=== PATIENT | female | born 1950 | race Caucasian/White ===

== ENCOUNTER → 2016-09-06 | Outpatient (CLI) | payer OTHER ==
[~2016-09-06] MED LIST: ATV/1 PO; INDA1TAB3 PO; LOSA1TAB PO; MULT-190 PO; S-AD1TAB6; SIMV40TA4 PO
[2016-09-06 12:07] LABS: BASO % 0.5 %; BASO ABS # 0.04 K/uL (0-0.2); COMPLETE YES; EOS % 2.1 %; HEMATOCRIT 40.6 % (37-47); IG% 0.3 %; LYMPH % 35.5 %; LYMPH ABS # 2.73 K/uL (1.2-3.4); MEAN CELL VOLUME 96.7 fL (80-100); MEAN CORPUSCULAR HEMOGLOBIN 32.4 pg (25-34); MEAN CORPUSCULAR HGB CONC 33.5 g/dl (32-36); MEAN PLATELET VOLUME 10.9 fL (7.4-10.4); MONO % 7.8 %; NEUT % 53.8 %; PLATELET COUNT 285 K/uL (130-400); WHITE BLOOD COUNT 7.68 K/uL (4.8-10.8)
[2016-09-06 12:35] LABS: ESTIMATED AVERAGE GLUCOSE 114 mg/dl; HA1C FLAG Normal (Normal)
[2016-09-06 13:47] LABS: ALT/SGPT 27 U/L (12-78); AST/SGOT 17 U/L (15-37); BLOOD UREA NITROGEN 21 mg/dl (7-18); BUN/CREATININE RATIO 34.5 (10-20); CALCIUM 9.3 mg/dl (8.5-10.1); CARBON DIOXIDE 30 mmol/L (21-32); CHLORIDE 102 mmol/L (98-107); CHOLESTEROL 159 mg/dl (0-200); GLUCOSE 95 mg/dl (70-99); POTASSIUM 3.9 mmol/L (3.5-5.1); SODIUM 139 mmol/L (136-145)
[2016-09-06 13:57] LABS: CHOLESTEROL/HDL RATIO 3.5; HDL CHOLESTEROL 46 mg/dl; LDL CHOLESTEROL CALCULATED 97 mg/dl; THYROID STIMULATING HORMONE 0.999 uIu/ml (0.300-4.500); TRIGLYCERIDES 79 mg/dl (0-150); VERY LOW DENSITY LIPOPROT CALC 16 mg/dl
--- NOTE | 2016-09-10 11:56 | CODING QUERY MEDICAL NECESSITY ---
SUPPORTING DIAGNOSIS NEEDED Dr. Lynn, A supporting diagnosis is required for the test/procedure performed on this patient in order for us to be reimbursed by the patient's insurance. Please provide a supporting diagnosis for the following test/procedure listed below next to the test name along with your signature. *If there is no additional diagnosis for this patient that would support the following test/procedure please document that below next to the test/procedure. Test(s)/Procedure(s) that require a supporting diagnosis: * [id number] GLYCATED HEMOGLOBIN DIAGNOSIS: DATE OF SERVICE: 09/06/16 Provider Signature: Date: Thank you Rajesh Rangel [facility] Information Management Once completed, please kindly fax back to [phone] For questions please call [phone]
== END | disposition home or self-care (01) ==
LOC: C.LAB1850 10:32
PROVIDERS: ATTEND Internal Medicine
DX: M54.2 Cervicalgia (principal); R73.9 Hyperglycemia, unspecified

== ENCOUNTER → 2016-09-19 | Outpatient (CLI) | payer OTHER ==
--- NOTE | 2016-09-19 13:35 | MAMMOGRAPHY REPORT ---
ULTRASOUND OF BOTH BREASTS: 09/19/2016 CLINICAL HISTORY: Screening ultrasound for dense breasts. The patient reports no current complaints . COMPARISON: Comparison is made to exams dated: 01/15/2016 mammogram, 09/19/2015 ultrasound, 03/17/2015 ultrasound, 01/13/2015 mammogram, 09/13/2014 ultrasound, and 01/12/2014 mammogram - [facility]. TECHNIQUE: Real-time ultrasound of both breasts was performed. FINDINGS: Real-time, high-resolution ultrasound was performed of bilateral breast including all 4 quadrants an d subareolar regions. Again noted is a round circumscribed hypoechoic mass in the left breast at 12 :00, 1 cm from the nipple, measuring 5 x 5 x 5 mm. This is stable compared to prior exams dating ba ck to the August 2014 exam, and is considered benign given long-term stability. In the left breast a t 2:00, 5 cm from the nipple, again noted is an oval circumscribed hypoechoic mass which measures 5 x 2 x 5 mm, also stable dating back to the August 2014 exam and considered benign given long-term sta bility. In the left breast at 4:00, 6 cm from the nipple, again noted is an oval hypoechoic circums cribed mass which measures 5 x 6 x 3 mm, also unchanged. In the left breast at 10:00, 6 cm from the nipple, there is an oval isoechoic 5 x 5 mm mass, which m ay represent a benign-appearing solid mass such as a fibroadenoma versus a normal fat lobule. This was not clearly evident on prior ultrasound exams. Adjacent to this in the left breast at 10:00 carmen roximately 7 cm from the nipple, there is an oval hypoechoic circumscribed mass which measures 6 x 3 mm, and is newly visualized. These masses appear similar to the other stable masses seen within th e left breast and are probably benign. Given that they are newly visualized, recommend short interv al follow-up ultrasound in 6 months. Ultrasound of the right breast demonstrates no suspicious masses or other suspicious sonographic abn ormalities. An oval anechoic benign simple cyst is seen within the right breast at 10:00, measuring 3 mm. IMPRESSION: ACR-BI-RADS CATEGORY 3: PROBABLY BENIGN - FOLLOW-UP RECOMMENDED 1. 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 2. Two adjacent circumscribed hypoechoic/isoechoic masses in the left breast at 10:00 are also prob ably benign and may represent fibroadenomas. Given that they are newly visualized on ultrasound, re commend a short interval follow-up ultrasound in 6 months to confirm stability. Note that bilateral screening mammograms are due December 2016. The patient was verbally notified of e results. Sangeeta Savage M.D. ah/:09/19/2016 12:03:26 Candle Wrapper: Sangeeta Savage MD, [facility] letter sent: Follow Up Recommended 3 BI-RADS Code: ACR-BI-RADS Category 3: Probably Benign
== END | disposition home or self-care (01) ==
LOC: C.MAMM 10:43
PROVIDERS: ATTEND Obstetrics & Gynecology
DX: Z12.31 Encounter for screening mammogram for malignant neoplasm of breast (principal); N63 Unspecified lump in breast

== ENCOUNTER → 2017-01-15 | Outpatient (CLI) | payer OTHER ==
--- NOTE | 2017-01-15 12:44 | MAMMOGRAPHY REPORT ---
BILATERAL DIGITAL SCREENING MAMMOGRAM WITH CAD: 01/15/2017 CLINICAL HISTORY: Routine screening. Patient has no complaints. TECHNIQUE: Bilateral CC and MLO views were obtained. Current study was also evaluated with a Compute r Aided Detection (CAD) system. COMPARISON: Comparison is made to exams dated: 01/15/2016 mammogram, 01/13/2015 mammogram, 01/12/2014 m ammogram, 01/11/2013 mammogram, 12/23/2011 mammogram, and 12/21/2010 mammogram - [facility]. BREAST COMPOSITION: The tissue of both breasts is heterogeneously dense, which may obscure small mas ses. FINDINGS: There are clusters of microcalcifications in both breasts. Although some of the clustered calcifications have been stable, others are possibly increased compared to prior exams and therefore bilateral spot magnification views are recommended. There are 2 nodular asymmetries in the lateral, middle one third of the right breast, best seen on the CC view, for which additional spot compressio n tomosynthesis views and possibly ultrasound are recommended. No other suspicious mass, focal area of architectural distortion or developing asymmetry is seen bila terally. IMPRESSION: ACR BI-RADS CATEGORY 0: INCOMPLETE EVALUATION: NEED ADDITIONAL IMAGING EVALUATION The bilateral clusters of microcalcifications and nodular asymmetries in the lateral right breast nee d additional imaging evaluation. The patient will be called to schedule an appointment. Approximately 10% of breast cancers are not detected with mammography. A negative mammographic report should not delay biopsy if a clinically suggestive mass is present. Leigh Quiles M.D. ay/:01/15/2017 12:29:55 Telephone Lineman: Ashleigh Nuno, [facility] letter sent: Addl Imaging 0 BI-RADS Code: ACR BI-RADS Category 0: Incomplete Evaluation: Need Additional Imaging Evaluation
== END | disposition home or self-care (01) ==
LOC: C.MAMM 12:03
PROVIDERS: ATTEND Obstetrics & Gynecology
DX: Z12.31 Encounter for screening mammogram for malignant neoplasm of breast (principal); R92.0 Mammographic microcalcification found on diagnostic imaging of breast; N64.89 Other specified disorders of breast

== ENCOUNTER → 2017-01-20 | Outpatient (CLI) | payer OTHER ==
--- NOTE | 2017-01-21 13:09 | MAMMOGRAPHY REPORT ---
BILATERAL DIGITAL DIAGNOSTIC MAMMOGRAM TOMOSYNTHESIS AND TARGETED RIGHT ULTRASOUND: 01/20/2017 CLINICAL HISTORY: Callback from screening mammography for bilateral microcalcifications and nodular a symmetry in the lateral right breast. Patient is also scheduled to have a follow-up left breast ultr asound to reassess benign-appearing masses in the 10:00 breast as described on the previous bilateral complete ultrasound report. TECHNIQUE: Spot magnification CC and ML views of each breast, spot compression 2-D and tomosynthesis right cc view were obtained. Then, after placement of a skin BB marker Spot compression CC and MLO t omosynthesis views of the right breast were obtained. COMPARISON: Comparison is made to exams dated: 01/15/2017 mammogram, 09/19/2016 ultrasound, 01/15/2016 mammogram, 01/13/2015 mammogram, 01/12/2014 mammogram, and 01/11/2013 mammogram - [facility]. BREAST COMPOSITION: The tissue of both breasts is heterogeneously dense, which may obscure small mas ses. FINDINGS: There are clusters of coarse heterogeneous microcalcifications bilaterally. There are carmen roximately 4 clusters in the left breast and one cluster in the right upper outer quadrant. All of t he clusters appears similar in morphology. When comparing back to prior available mammograms, many o f the clustered calcifications are evident dating back to 2009, suggesting benignity. However, some have increased, particularly in the lateral left breast. Although the microcalcifications most likel y represent benign calcifications such as degenerating fibroadenomas, definitive characterization of the largest, 6.3 mm cluster in the posterior, retroareolar left breast is recommended. The spot compression tomosynthesis view of the lateral right breast demonstrates a persistent 7.8 mm nodular asymmetry versus lobulated reniform shaped mass. No definite area of architectural distortio n is identified. A second possible mass posterior to the first measures 4.8 mm. Further evaluation with ultrasound was performed. Targeted ultrasound was performed throughout the lateral right breast. In the 9:00 axis, 5 cm from t he nipple, there is a reniform peripherally hypoechoic centrally echogenic mass measuring 2.5 x 1.8 x 3.0 mm. Another similar-appearing reniform mass with central echogenicity is seen in the adjacent 9 :00 right breast measuring 3.6 mm. Central blood flow is documented, suggesting these masses represe nt intramammary lymph nodes. An ill-defined hypoechoic area of shadowing was seen in the 8:00 right breast, 3 cm from the nipple, that may simply represent normal tissue with stromal fibrosis. However, a skin BB was placed overlyi ng the hypoechoic shadowing area seen on ultrasound and repeat spot compression tomosynthesis right C C and MLO views were performed. These additional tomosynthesis images demonstrate no evidence of arc hitectural distortion near the BB, suggesting the sonographic finding is benign. However, this can b e reassessed at the patient's follow-up appointment in the left breast dated 03/24/2017. IMPRESSION: ACR BI-RADS CATEGORY 4B: INTERMEDIATE SUSPICION FOR MALIGNANCY, TARGETED ULTRASOUND ACR BI-RADS CATEGORY 4B: INTERMEDIATE SUSPICION FOR MALIGNANCY 1. Left breast stereotactic guided biopsy is recommended for a 6.3 mm cluster of coarse heterogeneou s microcalcifications in the posterior retroareolar left breast. 2. Pending benign pathology results, would recommend bilateral targeted ultrasound to reevaluate the benign-appearing masses in the 10:00 left breast, and also a hypoechoic shadowing area in the 8:00 r ight breast, 3 cm from the nipple. 3. Also pending benign pathology results, would recommend bilateral diagnostic mammograms including spot magnification views at time of next annual exam, to ensure stability of the other similar appear ing clusters of microcalcifications bilaterally. These results and recommendations were discussed with the patient at the time of the exam. She tenta tively scheduled the left breast biopsy prior to leaving our department. The follow-up breast ultras ound had been previously scheduled for 03/24/2017. Approximately 10% of breast cancers are not detected with mammography. A negative mammographic report should not delay biopsy if a clinically suggestive mass is present. Leigh Quiles M.D. ay/:01/20/2017 16:36:30 Superintendent Warehouse: Blank COURTNEY)(Juan Pablo), [facility] letter sent: Abnormal 4/5 BI-RADS Code: ACR BI-RADS Category 4B: Intermediate Suspicion For Malignancy Ultrasound BI-RADS: ACR BI-RADS Category 4B: Intermediate Suspicion For Malignancy
== END | disposition home or self-care (01) ==
LOC: C.MAMM 13:43
PROVIDERS: ATTEND Obstetrics & Gynecology
DX: R92.0 Mammographic microcalcification found on diagnostic imaging of breast (principal); N64.89 Other specified disorders of breast

== ENCOUNTER → 2017-01-29 | Outpatient (CLI) | payer OTHER ==
--- NOTE | 2017-01-29 13:34 | Discharge Instructions ---
Discharge Instructions Procedure Procedure Date: Jan 29, 2017. Reason for visit: Left Calcs. Discharge Discharge Date: Jan 29, 2017. Discharge Diagnosis: post left breast stereotactic guided biopsy Instructions Activity Recommendations: Additional Limitations (see below) Return to School/Work: no limitations Recommended Home Diet: No Limitations Provider Instructions: ACTIVITY RECOMMENDATIONS: * No lifting, pushing, pulling or exercising the affected side for three days. RETURN TO SCHOOL/WORK: * You may return to work/school after the procedure, but do not perform any strenuous activities for 24 to 48 hours. MEDICATIONS: * Tylenol (two 325 mg) every four to six hours if needed for mild pain (if not allergic to Tylenol). DIET: * Resume previous diet. SPECIAL CARE INSTRUCTIONS: * Keep biopsy site dry for 24 hours. May shower after 24 hours, but do not soak (bathe) incision. * May remove Tegaderm (plastic patch) tomorrow AFTER showering. * Leave the steri-strips on for one week. Allow the steri-strips to fall off by themselves. If not off after one week, you may remove them. You may place a Bandaid crosswise over the strips, if desired. * Apply ice 10 minutes on and 10 minutes off as needed. * Wear a bra at bedtime to sleep more comfortably for 2-3 days. * Your referring physician should have the results after approximately 5 to 7 business days. * Call for unusual bleeding, fever, drainage, etc or if you have any questions call [phone] during normal business hours or after hours call Dr Quiles, . FOLLOW UP VISIT: Follow-up with Referring Physician as scheduled. Allergies Coded Allergies: Alfentanil (Unverified Allergy, Severe, SEVERE REACTOPM, 03/16/15) SEVERE REACTION, B/P AND ASTHMATIC [place] Recommendations: Call your doctor if: * Temperature above 101 degrees * Pain not relieved by pain medicine ordered * There is increased drainage or redness from any incision * You have any unanswered questions or concerns. Your Doctors Instructions noted above were prepared by provider Leigh Quiles. Patient Signature Section: Patient Instructions Signature Page Cathy Baird Patient (or Guardian) Signature/Date: I have read and understand the instructions given to me by my caregivers. Caregiver/RN/Doctor Signature/Date: The above-named patient and/or guardian has received patient instructions on this date. + Original Patient Signature Page (only) stays with chart. Please make copy for patient.
--- NOTE | 2017-01-29 15:19 | MAMMOGRAPHY REPORT ---
UNILATERAL LEFT DIGITAL DIAGNOSTIC MAMMOGRAM: 01/29/2017 CLINICAL HISTORY: Status post stereotactic guided biopsy of a 6 mm cluster of coarse heterogeneous mi crocalcifications in the posterior retroareolar left breast. Please refer to the report from left breast stereotactic biopsy performed at the same time for full d etail. IMPRESSION: POST PROCEDURE IMAGING FOR MARKER PLACEMENT Please refer to the report from left breast stereotactic biopsy performed at the same time for full d etail. Approximately 10% of breast cancers are not detected with mammography. A negative mammographic report should not delay biopsy if a clinically suggestive mass is present. Leigh Quiles M.D. ay/:01/29/2017 13:33:53 Parts Control Clerk: Mariajose VOSS(Maximino)(M), [facility] BI-RADS Code: Post Procedure Imaging For Marker Placement
--- NOTE | 2017-01-29 15:19 | MAMMOGRAPHY REPORT ---
THIS REPORT HAS BEEN AMENDED. STEREOTACTIC GUIDED BIOPSY LEFT BREAST: 01/29/2017 CLINICAL HISTORY: Several clusters of coarse microcalcifications in the left breast. Patient present s for stereotactic guided biopsy of the most numerous, 6 mm cluster in the 6:00 posterior/retroareola r left breast. COMPARISON: Comparison is made to exams dated: 01/20/2017 ultrasound, 01/20/2017 mammogram, 01/15/2017 mammogram, 09/19/2016 ultrasound, 01/15/2016 mammogram, and 09/19/2015 ultrasound - [facility]. PATIENT CONSENT: After explaining the risks, benefits and alternatives of the procedure to the patien t, informed consent was obtained both verbally and in writing. Specific risks include: Bleeding, inf ection, puncture of adjacent structure, pain, nontarget biopsy, sampling error, metal allergy and med ication reaction. PROCEDURE DESCRIPTION: A time-out was performed and the left breast was confirmed as the site of biop sy. The patient was placed prone on the stereotactic biopsy table and the breast was placed in CC fro m below compression. A inspection supervisor image was obtained that demonstrated the clustered microcalcifications i n question, particularly the 6 mm cluster in the far posterior retroareolar/6:00 posterior left breas t. They are amenable to sterotactic biopsy. Then +15 and -15 stereo pair images were obtained. The calcifications were targeted utilizing the coordinates obtained by the computer. The skin was prepp ed with Betadine. 1% Lidocaine with and without epinipherine was administered as local anesthesia. A small skin incision was made. Through the incision, the needle was inserted to the depth determined by the computer. 6 samples were obtained using a [employer] 9-gauge vacuum-assisted biopsy device. T he specimen radiograph demonstrated several telephone claims representative microcalcifications, therefore, a metallic marker was placed at the biopsy site. There was no immediate complication. Hemostasis was achieved a fter several minutes of manual compression. The samples were sent to pathology in two appropriately labeled containers, "with calcifications" and "without calcifications". All of the samples were obtai roselia from the same single biopsy site. Postprocedure CC and ML views of the left breast were obtained. There is a new dumbbell-shaped meta llic biopsy marker in the 6:00 posterior/retroareolar left breast at the site of the biopsied cluster ed microcalcifications. A possible small, 1 cm hematoma is seen at the biopsy site on the CC project ion. IMPRESSION: STEREOTACTIC GUIDED BIOPSY Status post left breast stereotactic guided biopsy of a 6 mm cluster of coarse heterogeneous macro ca lcifications in the 6:00 posterior/retroareolar breast. The patient is currently scheduled for a follow-up ultrasound in March 2017. Also, pending benign pathology results, follow-up bilateral diagnostic mammograms and ultrasound are recommended in 6 months, as per prior diagnostic report recommendations. The patient will receive notification of the biopsy results from her referring physician. Leigh Quiles M.D. ay/:01/29/2017 14:28:32 Motor Vehicle Representative: Mariajose COURTNEY)(Juan Pablo), [facility] AMENDMENT: 02/05/2017 Leigh Quiles M.D. Pathology results from the stereotactic guided biopsy of a cluster of calcifications in the retroareo lar posterior left breast yielded fibroadenomatoid change with associative microcalcification. Negat astrid for DCIS and invasive carcinoma. The pathology results are concordant with the imaging appearanc e. The patient is due for a follow-up ultrasound in March 2017, and also would recommend 6 month f ollow-up diagnostic mammograms and repeat spot magnification views to ensure stability of other clust ers of similar appearing microcalcifications.
== END | disposition home or self-care (01) ==
LOC: C.MAMM 12:23
PROVIDERS: ATTEND Obstetrics & Gynecology
DX: R92.0 Mammographic microcalcification found on diagnostic imaging of breast (principal); D24.2 Benign neoplasm of left breast

== ENCOUNTER → 2017-03-24 | Outpatient (CLI) | payer OTHER ==
--- NOTE | 2017-03-24 15:45 | MAMMOGRAPHY REPORT ---
ULTRASOUND OF BOTH BREASTS: 03/24/2017 CLINICAL HISTORY: Follow-up bilateral breast ultrasound for a hypoechoic area in the 9:00 right breas t, and 2 benign appearing solid masses in the 10:00 left breast. Patient recently underwent left deshawn ast stereotactic guided biopsy of a cluster of coarse heterogeneous microcalcifications in the 12:00/ central left breast, which yielded a benign fibroadenoma. COMPARISON: Comparison is made to exams dated: 01/29/2017 stereotactic biopsy, 01/20/2017 ultrasound, mammogram, 01/15/2017 mammogram, 09/19/2016 ultrasound, and 01/15/2016 mammogram - [facility]. FINDINGS: Targeted ultrasound was performed in the 10:00 left breast and 8:00 right breast. In the 10:00 left breast, 6 cm from the nipple, a parallel isoechoic solid-appearing mass is again identifie d measuring 5.3 x 2.3 x 5.3 mm. In the 10:00 left breast, 7 cm from the nipple, another parallel hyp oechoic solid-appearing mass is again identified measuring 5.1 x 2.4 x 3.5 mm. When comparing to the prior ultrasounds, these are unchanged dating back to the 09/19/2016 ultrasounds at which time they measured 5.0 x 5.2 and 3.2 x 6.3 mm, respectively. A hypoechoic shadowing area is again identified in the 8:00 right breast, 3 cm from the nipple, measu ring approximately 2.8 x 4.2 mm. This has not significantly changed in size or appearance comparing to the prior ultrasound dated 01/20/2017 and also appears similar to adjacent hypoechoic tissue throu ghout the 8:00 right breast seen and real-time ultrasound. IMPRESSION: ACR-BI-RADS CATEGORY 3: PROBABLY BENIGN - FOLLOW-UP RECOMMENDED There are 2 stable benign-appearing subcentimeter solid masses in the 10:00 left breast, and a stable area of hypoechoic shadowing tissue in the 8:00 right breast. These bilateral findings are most lik bao benign, but longer stability is needed. Another short interval follow-up targeted ultrasound is recommended. Since the patient is due for repeat spot magnification views to ensure stability of rosey rocalcifications in both breasts, would recommend performing both the spot magnification views and re peat targeted ultrasound in July 2017. These results and recommendations were discussed with the patient at the time of the exam. Leigh Quiles M.D. ay/:03/24/2017 14:41:09 Attending Technologist: Mariajose COURTNEY)(M), [facility] Community Product Specialist: Dr. Leigh Quiles, [facility] letter sent: Follow Up Recommended 3 BI-RADS Code: ACR-BI-RADS Category 3: Probably Benign
== END | disposition home or self-care (01) ==
LOC: C.MAMM 10:54
PROVIDERS: ATTEND Obstetrics & Gynecology
DX: N63.20 Unspecified lump in the left breast, unspecified quadrant (principal); R92.8 Other abnormal and inconclusive findings on diagnostic imaging of breast

== ENCOUNTER → 2017-04-21 | Outpatient (CLI) | payer OTHER ==
[2017-04-21 10:06] LABS: BASO % 0.3 %; BASO ABS # 0.02 K/uL (0-0.2); COMPLETE YES; HEMATOCRIT 42.1 % (37-47); IG% 0.1 %; LYMPH % 29.4 %; LYMPH ABS # 2.03 K/uL (1.2-3.4); MEAN CELL VOLUME 98.8 fL (80-100); MEAN CORPUSCULAR HEMOGLOBIN 31.7 pg (25-34); MEAN CORPUSCULAR HGB CONC 32.1 g/dl (32-36); NEUT % 59.2 %; PLATELET COUNT 275 K/uL (130-400); RED BLOOD COUNT 4.26 M/uL (4.2-5.4); WHITE BLOOD COUNT 6.91 K/uL (4.8-10.8)
[2017-04-21 10:20] LABS: ESTIMATED AVERAGE GLUCOSE 108 mg/dl; HA1C FLAG Normal (Normal)
[2017-04-21 10:47] LABS: ALT/SGPT 25 U/L (12-78); AST/SGOT 15 U/L (15-37); BLOOD UREA NITROGEN 19 mg/dl (7-18); BUN/CREATININE RATIO 30.4 (10-20); CARBON DIOXIDE 29 mmol/L (21-32); CHLORIDE 103 mmol/L (98-107); CHOLESTEROL 158 mg/dl (0-200); CREATININE 0.62 mg/dl (0.60-1.20); GLUCOSE 111 mg/dl (70-99); POTASSIUM 3.7 mmol/L (3.5-5.1); SODIUM 139 mmol/L (136-145)
[2017-04-21 10:50] LABS: CHOLESTEROL/HDL RATIO 3.5; HDL CHOLESTEROL 45 mg/dl; LDL CHOLESTEROL CALCULATED 94 mg/dl; TRIGLYCERIDES 95 mg/dl (0-150); VERY LOW DENSITY LIPOPROT CALC 19 mg/dl
== END | disposition home or self-care (01) ==
LOC: C.LAB1850 09:15
PROVIDERS: ATTEND Physician Assistant
DX: E78.00 Pure hypercholesterolemia, unspecified (principal); R73.9 Hyperglycemia, unspecified; Z11.59 Encounter for screening for other viral diseases

== ENCOUNTER → 2017-05-22 | Outpatient (CLI) | payer OTHER | END | disposition home or self-care (01) | LOC: C.MAMM 10:38 | PROVIDERS: ATTEND Physician Assistant | DX: Z00.00 Encounter for general adult medical examination without abnormal findings (principal) ==

== ENCOUNTER → 2017-07-28 | Outpatient (CLI) | payer OTHER ==
--- NOTE | 2017-07-29 13:30 | MAMMOGRAPHY REPORT ---
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 Also follow-up of sonographic findings in both breasts. TECHNIQUE: Bilateral breast tomosynthesis in addition to standard 2D mammography was performed. Spot magnification CC and ML views of each breast were also obtained. Current study was also evaluated w ith a Computer Aided Detection (CAD) system. COMPARISON: Comparison is made to exams dated: 03/24/2017 ultrasound, 01/29/2017 mammogram, 01/29/2017 st ereotactic biopsy, 01/20/2017 ultrasound, 01/20/2017 mammogram, and 01/15/2017 mammogram - [facility]. BREAST COMPOSITION: The tissue of both breasts is heterogeneously dense, which may obscure small mas ses. FINDINGS: There is a stable dumbbell shaped biopsy marker clip in the retroareolar/central left breas t, at the site of prior benign stereotactic guided biopsy. There are multiple bilateral clusters of microcalcifications, similar in morphology to those biopsied and yielded benign results, which are al so stable comparing to prior spot magnification views and prior mammograms dating back to at least . Another follow-up bilateral diagnostic mammogram including spot magnification views is rec ommended in 12 months to ensure longer stability. There is stable mammographic nodularity in the lat eral and superior right breast. No obvious mass, architectural distortion, or new suspicious microca lcifications are identified. Targeted ultrasound was performed in the 10:00 left breast and 8:00 right breast. In the 10:00 left breast, 6 cm from the nipple, there is an isoechoic to hypoechoic circumscribed, lobulated and parall el oriented mass measuring 4.9 x 2.5 x 5.6 mm. In the left 10:00 breast, 7 cm from the nipple an iso echoic circumscribed, parallel mass is identified measuring 3.5 x 2.5 x 5.2 mm. They are unchanged d ating back to a prior ultrasound performed 09/19/2016 at which time they measured 5.0 x 5.2 and 3.2 x 6.3 mm, respectively. Another 12 month follow-up targeted ultrasound is recommended to ensure at le ast 2 years of stability to confirm benignity. In the right 8:00 breast, the area of hypoechoic shadowing is less prominent comparing back to the ultrasound and this area is most likely benign. This can also be reassessed at time of next sonographic follow-up in 12 months. IMPRESSION: ACR-BI-RADS CATEGORY 3: PROBABLY BENIGN, TARGETED ULTRASOUND ACR-BI-RADS CATEGORY 3: PRO BABLY BENIGN 1. Stable mammographic appearance of the breasts including multiple similar appearing clusters of ca lcifications bilaterally. The dominant cluster in the left central/retroareolar breast was previousl y biopsied and yielded benign pathology results. 2. Stable sonographic appearance of benign isoechoic masses in the 10:00 left breast and less promin ent area of shadowing in the 8:00 right breast. Another 12 month bilateral targeted ultrasound is re commended to ensure at least 2 years of stability to confirm benignity. These results and recommendations were discussed with the patient at the time of the exam. Given edward t bilateral mammography was performed today, would recommend bilateral tomosynthesis mammograms and s pot magnification views in 12 months as well as bilateral targeted ultrasound. Approximately 10% of breast cancers are not detected with mammography. A negative mammographic report should not delay biopsy if a clinically suggestive mass is present. Leigh Quiles M.D. ay/:07/28/2017 15:25:32 [employer]outer: Dawn VOSS(Maximino)([place]), [facility] letter sent: Follow Up Recommended 3 BI-RADS Code: ACR-BI-RADS Category 3: Probably Benign Ultrasound BI-RADS: ACR-BI-RADS Category 3: Pr obably Benign
== END | disposition home or self-care (01) ==
LOC: C.MAMM 13:43
PROVIDERS: ATTEND Obstetrics & Gynecology
DX: R92.1 Mammographic calcification found on diagnostic imaging of breast (principal); N63.22 Unspecified lump in the left breast, upper inner quadrant

== ENCOUNTER → 2017-10-15 | Outpatient (CLI) | payer OTHER ==
[2017-10-15 12:20] LABS: BASO % 0.8 %; BASO ABS # 0.05 K/uL (0-0.2); EOS % 2.9 %; EOS ABS # 0.18 K/uL (0-0.5); HEMATOCRIT 42.8 % (37-47); HEMOGLOBIN 13.9 g/dL (12.0-16.0); IG# 0.01 K/uL (0.00-0.02); LYMPH % 37.3 %; LYMPH ABS # 2.31 K/uL (1.2-3.4); MEAN CELL VOLUME 98.8 fL (80-100); MEAN CORPUSCULAR HEMOGLOBIN 32.1 pg (25-34); MEAN CORPUSCULAR HGB CONC 32.5 g/dl (32-36); MEAN PLATELET VOLUME 10.8 fL (7.4-10.4); MONO % 8.9 %; MONO ABS # 0.55 K/uL (0.11-0.59); NEUT % 49.9 %; NEUT ABS # 3.09 K/uL (1.4-6.5); PLATELET COUNT 278 K/uL (130-400); RED CELL DISTRIBUTION WIDTH CV 14.6 % (11.5-14.5); RED CELL DISTRIBUTION WIDTH SD 52.6 fL (36.4-46.3); WHITE BLOOD COUNT 6.19 K/uL (4.8-10.8)
[2017-10-15 12:47] LABS: HEMOGLOBIN A1C 5.5 % (4.5-5.6)
[2017-10-15 12:54] LABS: ALT/SGPT 32 U/L (12-78); AST/SGOT 21 U/L (15-37); BLOOD UREA NITROGEN 18 mg/dl (7-18); CALCIUM 9.4 mg/dl (8.5-10.1); CARBON DIOXIDE 25 mmol/L (21-32); CHOLESTEROL 150 mg/dl (0-200); CREATININE 0.69 mg/dl (0.60-1.20); GLUCOSE 116 mg/dl (70-99); POTASSIUM 3.8 mmol/L (3.5-5.1); SODIUM 137 mmol/L (136-145)
[2017-10-15 13:05] LABS: LDL CHOLESTEROL CALCULATED 86 mg/dl
== END | disposition home or self-care (01) ==
LOC: C.LAB1850 09:53
PROVIDERS: ATTEND Physician Assistant
DX: I10 Essential (primary) hypertension (principal); E78.00 Pure hypercholesterolemia, unspecified